=== PATIENT | female | born 1975 | race Caucasian/White ===

== ENCOUNTER 2019-09-22 15:20 | Inpatient (IN) | payer MEDICAID ==
[~2019-09-22] VITALS: Ht 154.9 cm; Wt 59.9 kg
[2019-09-22 15:22] VITALS: BP_SYST 192
[2019-09-22] MEDS ORDERED: DEXAMETHASONE SOD PHOSPHATE 10 MG/ML VIAL IVP ONE (15:30)
[2019-09-22] MEDS ORDERED: MORPHINE 4 MG/ML INJ. SYRINGE IVP ONE ×3 (15:30→18:15)
[2019-09-22] MEDS ORDERED: NACL 0.9% 1,000 ML IV ONE (15:45)
[2019-09-22] MEDS ORDERED: traMADol HCL HCL 50 MG TABLET (ULTRAM) PO ONE (16:00)
[2019-09-22 16:01] LABS: BILIRUBIN,URINE NEGATIVE (NEGATIVE); BLOOD, URINE 2+ (NEGATIVE); COLOR,URINE YELLOW (YELLOW); GLUCOSE,URINE NEGATIVE (NEGATIVE); KETONES,URINE NEGATIVE (NEGATIVE); NITRITE, URINE NEGATIVE (NEGATIVE); PROTEIN URINE 3+ (NEGATIVE); UROBILINOGEN,URINE 0.2 (0.2-1.0)
[2019-09-22 16:17] LABS: CLARITY/URINE HAZY (CLEAR); LEUKOCYTE ESTERASE ,URINE 1+ (NEGATIVE)
[2019-09-22 16:19] LABS: BACTERIA,URINE FEW /HPF (None Seen); MUCUS,URINE None Seen /LPF (None Seen); RBC,URINE NONE SEEN /HPF (0-3)
[2019-09-22 16:34] LABS: BASOPHILS # (AUTO) 0.1 K/uL (0.0-0.2); BASOPHILS % (AUTO) 0.6 % (0.0-2.0); EOSINOPHILS # (AUTO) 0.2 K/uL (0.0-0.4); EOSINOPHILS % (AUTO) 1.1 % (0.0-4.0); HEMATOCRIT 39.2 % (36-48); HEMOGLOBIN 12.8 g/dL (12.0-16.0); LYMPHOCYTES % (AUTO) 32.2 % (20.5-51.5); MEAN CORPUSCULAR HEMOGLOBIN 27 pg (27-31); MEAN CORPUSCULAR HGB CONC 33 % (32-36); MEAN CORPUSCULAR VOLUME 83 fL (79.0-98.0); MONOCYTES # (AUTO) 0.8 K/uL (0.0-1.0); MONOCYTES % (AUTO) 5.3 % (1.7-9.3); NEUTROPHILS # (AUTO) 9.5 K/uL (1.8-7.7); NEUTROPHILS % (AUTO) 60.8 % (40.0-70.0); PLATELET COUNT (AUTO) 352 K/uL (130-430); RED BLOOD CELL COUNT(AUTO) 4.72 MIL/uL (4.2-6.2); WHITE BLOOD COUNT (AUTO) 15.6 K/uL (4.8-10.8)
[2019-09-22 16:40] LABS: CALCIUM 8.5 mg/dL (8.4-11.0); CREATININE 0.76 mg/dL (0.55-1.30); POTASSIUM 3.4 mmol/L (3.5-5.1)
[2019-09-22 16:45] LABS: ALBUMIN 2.4 g/dL (3.4-4.8); TOTAL BILIRUBIN 0.4 mg/dL (0.0-1.0)
[2019-09-22 17:22] LABS: ERYTHROCYTE SEDIMENTATION RATE 40 MM/HR (0-20)
[2019-09-22] MEDS ORDERED: cefTRIAXone 1 GM IVPB PREMIX 50 ML IV ONE (18:00)
[2019-09-22] MEDS ORDERED: NACL 0.9% 2,000 ML IV ONE (18:15)
[2019-09-22] MEDS ORDERED: ALPR0.5T PO (19:27)
[2019-09-22] MEDS ORDERED: DEXAMETHASONE SOD PHOSPHATE 4 MG/ML VIAL IVP ONE (19:45)
[2019-09-22] MEDS ORDERED: ONDANSETRON HCL 4 MG/2 ML VIAL IVP PRN (19:45)
[2019-09-22 20:00] VITALS: BP_SYST 181
[2019-09-22 20:32] LABS: INR 0.9 (0.8-1.2); PROTHROMBIN TIME 9.5 SECS (9.5-12.5)
[2019-09-22 20:52] LABS: AMYLASE 177 U/L (0-100); PHOSPHORUS 2.8 mg/dL (2.7-4.5)
[2019-09-22] MEDS: LR 1,000 ML IV SCH (21:00)
[2019-09-22] MEDS: ALPRAZolam 0.25 MG TABLET PO SCH (21:38)
[2019-09-22] MEDS: DOCUSATE SODIUM 100 MG CAPSULE PO SCH (21:39)
[2019-09-22] MEDS: HEPARIN SODIUM,PORCINE 5000 UNITS/ML VIAL SUBCUT SCH (21:46)
[2019-09-23 00:10] LABS: BARBITURATE, URINE NEGATIVE (NEG <=200); BENZODIAZEPINE, URINE POSITIVE (NEG <=150); CANNABINOID, URINE POSITIVE (NEG <=50); COCAINE, URINE NEGATIVE (NEG <=150); METHAMPHETAMINES SCREEN,URINE NEGATIVE (NEG <=500); OPIATE, URINE NEGATIVE (NEG <=100); PHENCYCLIDINE SCREEN,URINE NEGATIVE (NEG <=25); UR TRICYCLIC ANTIDEPRESSANTS NEGATIVE (NEG <=300); URINE AMPHETAMINE NEGATIVE (NEG <=500); URINE METHADONE NEGATIVE (NEG <=200); URINE OXYCODONE SCREEN NEGATIVE (NEG <=100); URINE PROPOXYPHENE SCREEN NEGATIVE (NEG <=300)
[2019-09-23 00:16] VITALS: BP_SYST 176
[2019-09-23] MEDS: LR 1,000 ML IV SCH ×2 (04:32→15:20)
[2019-09-23 06:12] LABS: BASOPHILS % (AUTO) 0.1 % (0.0-2.0); HEMATOCRIT 39.3 % (36-48); HEMOGLOBIN 12.9 g/dL (12.0-16.0); LYMPHOCYTES # (AUTO) 1.9 K/uL (1.0-5.5); LYMPHOCYTES % (AUTO) 9.6 % (20.5-51.5); MEAN CORPUSCULAR HEMOGLOBIN 28 pg (27-31); MEAN CORPUSCULAR HGB CONC 33 % (32-36); MEAN CORPUSCULAR VOLUME 84 fL (79.0-98.0); MONOCYTES # (AUTO) 0.1 K/uL (0.0-1.0); MONOCYTES % (AUTO) 0.4 % (1.7-9.3); NEUTROPHILS # (AUTO) 17.8 K/uL (1.8-7.7); PLATELET COUNT (AUTO) 363 K/uL (130-430); RED BLOOD CELL COUNT(AUTO) 4.68 MIL/uL (4.2-6.2); RED CELL DISTRIBUTION WIDTH 14.3 % (9.0-15.0); WHITE BLOOD COUNT (AUTO) 19.8 K/uL (4.8-10.8)
[2019-09-23 06:35] LABS: CALCIUM 8.5 mg/dL (8.4-11.0); CREATININE 0.69 mg/dL (0.55-1.30); POTASSIUM 4.1 mmol/L (3.5-5.1)
[2019-09-23] MEDS ORDERED: BACL10TA PO (07:31)
[2019-09-23] MEDS ORDERED: SULF1TAB48 PO (07:31)
[2019-09-23] MEDS ORDERED: TRAM50TA2 PO (07:31)
[2019-09-23 07:45] VITALS: BP_SYST 191
[2019-09-23] MEDS ORDERED: hydrALAZINE HCL 10 MG TABLET PO ONE (08:15)
[2019-09-23] MEDS ORDERED: LORazepam 1 MG TABLET PO ONE (08:15)
[2019-09-23] MEDS: HEPARIN SODIUM,PORCINE 5000 UNITS/ML VIAL SUBCUT SCH ×2 (08:59→20:57)
[2019-09-23] MEDS: BACLOFEN 10 MG TABLET PO PRN (08:59)
[2019-09-23] MEDS: DOCUSATE SODIUM 100 MG CAPSULE PO SCH ×2 (09:00→20:55)
[2019-09-23] MEDS: traMADol HCL HCL 50 MG TABLET (ULTRAM) PO PRN ×2 (09:05→22:09)
[2019-09-23 09:57] LABS: NEUTROPHILS % (AUTO) 89.9 % (40.0-70.0)
[2019-09-23] MEDS: ALPRAZolam 0.25 MG TABLET PO SCH ×2 (10:45→20:55)
[2019-09-23] MEDS ORDERED: MORPHINE SULFATE 10 MG/ML VIAL IVP PRN (11:00)
[2019-09-23 12:00] VITALS: BP_SYST 199
[2019-09-23] MEDS: MORPHINE SULFATE 10 MG/ML VIAL IVP PRN ×2 (12:35→16:25)
[2019-09-23] MEDS ORDERED: DEXAMETHASONE SOD PHOSPHATE 4 MG/ML VIAL IVP ONE (15:00)
[2019-09-23 16:58] VITALS: BP_SYST 162
[2019-09-23] MEDS ORDERED: cefTRIAXone 1 GM in D5W 50 ML IV SCH (18:00)
[2019-09-23] MEDS: NACL 0.9% 1,000 ML IV SCH (20:54)
[2019-09-23 21:00] VITALS: BP_SYST 167
[2019-09-23 21:02] VITALS: BP_SYST 179
[2019-09-23] MEDS: LISINOPRIL 5 MG TABLET PO SCH (22:11)
[2019-09-24 00:14] VITALS: BP_SYST 164
[2019-09-24] MEDS: BACLOFEN 10 MG TABLET PO PRN ×3 (04:40→19:30)
[2019-09-24] MEDS: traMADol HCL HCL 50 MG TABLET (ULTRAM) PO PRN ×3 (04:42→19:30)
[2019-09-24 06:14] LABS: HEMATOCRIT 43.2 % (36-48); MEAN CORPUSCULAR HEMOGLOBIN 27 pg (27-31); MEAN CORPUSCULAR HGB CONC 33 % (32-36); MEAN CORPUSCULAR VOLUME 84 fL (79.0-98.0); PLATELET COUNT (AUTO) 456 K/uL (130-430); RED BLOOD CELL COUNT(AUTO) 5.14 MIL/uL (4.2-6.2); RED CELL DISTRIBUTION WIDTH 14.3 % (9.0-15.0); WHITE BLOOD COUNT (AUTO) 26.4 K/uL (4.8-10.8)
[2019-09-24 06:22] LABS: CALCIUM 8.5 mg/dL (8.4-11.0); CREATININE 0.91 mg/dL (0.55-1.30); POTASSIUM 3.6 mmol/L (3.5-5.1)
[2019-09-24] MEDS: LEVOTHYROXINE SODIUM 0.025 MG TABLET PO SCH (07:01)
[2019-09-24] MEDS: NACL 0.9% 1,000 ML IV SCH ×2 (07:04→15:30)
[2019-09-24 07:18] LABS: ATYPICAL LYMPHOCYTES % 0 % (0-0); BAND % (MANUAL) 2 % (0-6); LYMPHOCYTES % (MANUAL) 15 % (20-46)
[2019-09-24 07:19] LABS: BASOPHILS % (MANUAL) 0 % (0-2); EOSINOPHILS % (MANUAL) 0 % (0-7); MONOCYTES % (MANUAL) 6 % (0-11)
[2019-09-24 08:00] VITALS: BP_SYST 156
[2019-09-24] MEDS: DOCUSATE SODIUM 100 MG CAPSULE PO SCH ×2 (09:00→21:00)
[2019-09-24] MEDS ORDERED: cloNIDine HCL 0.1 MG TABLET PO PRN (09:15)
[2019-09-24] MEDS ORDERED: METOPROLOL TARTRATE 25 MG TABLET PO ONE (09:15)
[2019-09-24] MEDS: ATORVASTATIN 20 MG TABLET PO SCH (09:22)
[2019-09-24] MEDS: LISINOPRIL 5 MG TABLET PO SCH (09:23)
[2019-09-24] MEDS: ALPRAZolam 0.25 MG TABLET PO SCH ×2 (09:24→21:40)
[2019-09-24] MEDS: HEPARIN SODIUM,PORCINE 5000 UNITS/ML VIAL SUBCUT SCH ×2 (09:25→21:47)
[2019-09-24] MEDS ORDERED: DEXAMETHASONE 1 MG TABLET (DECADRON) PO ONE (11:30)
[2019-09-24 12:26] VITALS: BP_SYST 149
[2019-09-24 16:20] VITALS: BP_SYST 133
[2019-09-24] MEDS: PIPERACILLIN/TAZO 4.5GM/DEX-IS 100 ML IV SCH ×3 (17:47→23:29)
[2019-09-24 20:00] VITALS: BP_SYST 120
[2019-09-24] MEDS: METOPROLOL TARTRATE 25 MG TABLET PO SCH (21:40)
[2019-09-24] MEDS: DEXAMETHASONE 1 MG TABLET (DECADRON) PO SCH (21:47)
[2019-09-24 23:55] VITALS: BP_SYST 122
[2019-09-25] MEDS: traMADol HCL HCL 50 MG TABLET (ULTRAM) PO PRN (06:10)
[2019-09-25] MEDS: BACLOFEN 10 MG TABLET PO PRN (06:10)
[2019-09-25] MEDS: NACL 0.9% 1,000 ML IV SCH (06:10)
[2019-09-25] MEDS: PIPERACILLIN/TAZO 4.5GM/DEX-IS 100 ML IV SCH ×2 (06:10→11:45)
[2019-09-25] MEDS: LEVOTHYROXINE SODIUM 0.025 MG TABLET PO SCH (06:10)
[2019-09-25 06:22] LABS: BASOPHILS % (AUTO) 0.3 % (0.0-2.0); HEMATOCRIT 35.9 % (36-48); HEMOGLOBIN 11.8 g/dL (12.0-16.0); LYMPHOCYTES # (AUTO) 3.3 K/uL (1.0-5.5); LYMPHOCYTES % (AUTO) 21.3 % (20.5-51.5); MEAN CORPUSCULAR HEMOGLOBIN 28 pg (27-31); MEAN CORPUSCULAR HGB CONC 33 % (32-36); MEAN CORPUSCULAR VOLUME 84 fL (79.0-98.0); MONOCYTES # (AUTO) 0.5 K/uL (0.0-1.0); MONOCYTES % (AUTO) 3.4 % (1.7-9.3); NEUTROPHILS # (AUTO) 11.5 K/uL (1.8-7.7); PLATELET COUNT (AUTO) 314 K/uL (130-430); RED BLOOD CELL COUNT(AUTO) 4.28 MIL/uL (4.2-6.2)
[2019-09-25 06:52] LABS: POTASSIUM 3.6 mmol/L (3.5-5.1)
[2019-09-25 06:53] LABS: CALCIUM 8.1 mg/dL (8.4-11.0); CREATININE 0.68 mg/dL (0.55-1.30)
[2019-09-25 07:33] LABS: WHITE BLOOD COUNT (AUTO) 15.4 K/uL (4.8-10.8)
[2019-09-25 08:00] VITALS: BP_SYST 137
[2019-09-25] MEDS: DOCUSATE SODIUM 100 MG CAPSULE PO SCH (09:00)
[2019-09-25] MEDS: ALPRAZolam 0.25 MG TABLET PO SCH (09:31)
[2019-09-25] MEDS: LISINOPRIL 5 MG TABLET PO SCH (09:31)
[2019-09-25] MEDS: METOPROLOL TARTRATE 25 MG TABLET PO SCH (09:32)
[2019-09-25] MEDS: ATORVASTATIN 20 MG TABLET PO SCH (09:33)
[2019-09-25] MEDS: DEXAMETHASONE 1 MG TABLET (DECADRON) PO SCH (09:33)
[2019-09-25] MEDS: HEPARIN SODIUM,PORCINE 5000 UNITS/ML VIAL SUBCUT SCH (09:34)
[2019-09-25 12:20] VITALS: BP_SYST 120
== END 2019-09-25 14:05 | disposition left against medical advice (07) | DRG 347 ==
LOC: SED 15:20 → STU 18:02
PROVIDERS: ADMIT Student in an Organized Health Care Education/Training Program; ATTEND Student in an Organized Health Care Education/Training Program
DX: M51.26 Other intervertebral disc displacement, lumbar region (principal); E43 Unspecified severe protein-calorie malnutrition; K85.90 Acute pancreatitis without necrosis or infection, unspecified; R78.81 Bacteremia; N39.0 Urinary tract infection, site not specified; M54.42 Lumbago with sciatica, left side; D72.829 Elevated white blood cell count, unspecified; E87.6 Hypokalemia; E87.1 Hypo-osmolality and hyponatremia; Z53.29 Procedure and treatment not carried out because of patient's decision for other reasons; M47.816 Spondylosis without myelopathy or radiculopathy, lumbar region; E03.9 Hypothyroidism, unspecified; F12.90 Cannabis use, unspecified, uncomplicated; T38.0X5A Adverse effect of glucocorticoids and synthetic analogues, initial encounter; Y92.89 Other specified places as the place of occurrence of the external cause; Z88.6 Allergy status to analgesic agent; Z68.24 Body mass index [BMI] 24.0-24.9, adult
CPT/HCPCS: 36415; 71045; 72110; 80048; 80053; 80061; 80307; 81000-TC; 82150-TC; 83036; 83690-TC; 83735-TC; 83880; 84100-TC; 84443-TC; 84484; 85007; 85025; 85027; 85610-TC; 85651-TC; 85730-TC; 87040-TC; 87086; 93005; 96365; 96375; 96376; 99285; G0378; J0696; J1100; J1644; J2270; J2543; J7030; J7060; J7120